=== PATIENT | male | born 1970 | race Caucasian/White ===

== ENCOUNTER 2017-11-27 13:11 | Emergency (ER) | payer BC ==
[~2017-11-27] VITALS: Ht 188 cm; Wt 77.1 kg
[2017-11-27] MEDS ORDERED: IBUPROFEN 800800 M1 PO (14:25)
[2017-11-27] MEDS ORDERED: KEFLEX500 M1 PO (14:25)
[2017-11-27 14:40] VITALS: BP 119/70
== END 2017-11-27 14:41 | disposition home or self-care (01) ==
LOC: M.ERS 13:11
DX: S70.01XA Contusion of right hip, initial encounter (principal); S80.211A Abrasion, right knee, initial encounter; S50.311A Abrasion of right elbow, initial encounter; W17.89XA Other fall from one level to another, initial encounter; Y93.89 Activity, other specified; Y92.89 Other specified places as the place of occurrence of the external cause; Y99.8 Other external cause status